=== PATIENT | male | born 1970 | race African-American/Black ===

== ENCOUNTER 2019-09-24 09:36 | Inpatient (IN) | payer OTHER ==
[2019-09-24 10:26] VITALS: BMI 20.3
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
[2019-09-24] MEDS ORDERED: cloNIDine HCL 0.1 MG TABLET PO PRN (11:48)
[2019-09-24] MEDS ORDERED: BISMUTH SUBSALICYLATE 524 MG/30 ML UD PO PRN (11:48)
[2019-09-24] MEDS ORDERED: MAGNESIUM CITRATE 300 ML BOTTLE PO PRN (11:48)
[2019-09-24] MEDS ORDERED: ACETAMINOPHEN 325 MG TABLET (FP) PO PRN ×2 (11:48)
[2019-09-24] MEDS ORDERED: hydrOXYzine PAMOATE 25 MG CAPSULE (FP) PO PRN (11:48)
[2019-09-24] MEDS ORDERED: MAG HYDROX/AL HYDROX/SIMETH 30 ML UNIT-DOSE CUP PO PRN (11:48)
[2019-09-24] MEDS ORDERED: MENTHOL/PHENOL 1 EACH UD MM PRN (11:48)
[2019-09-24] MEDS ORDERED: chlordiazePOXIDE HCL 25 MG CAPSULE PO PRN (11:48)
[2019-09-24] MEDS ORDERED: METHOCARBAMOL 500 MG TABLET PO PRN (11:48)
[2019-09-24] MEDS ORDERED: MAGNESIUM HYDROX 2400MG/30ML ORAL SUSPENSION 30 ML CUP PO PRN (11:48)
[2019-09-24] MEDS ORDERED: METHADONE HCL 10 MG TABLET (FOR DETOX USE ONLY) PO ONE (13:00)
[2019-09-24] MEDS: METHIMAZOLE 10 MG TABLET (FP) PO SCH ×2 (15:34→22:28)
[2019-09-24] MEDS: chlordiazePOXIDE HCL 25 MG CAPSULE PO SCH ×2 (18:39→22:30)
[2019-09-24] MEDS: THIAMINE HCL 100 MG TABLET (FP) PO SCH (22:28)
[2019-09-24] MEDS: MELATONIN 5 MG TABLETS PO PRN (22:29)
[2019-09-25] MEDS: chlordiazePOXIDE HCL 25 MG CAPSULE PO SCH ×4 (05:40→22:30)
[2019-09-25] MEDS: METHIMAZOLE 10 MG TABLET (FP) PO SCH ×3 (05:42→20:35)
[2019-09-25] MEDS ORDERED: METHADONE HCL 10 MG TABLET (FOR DETOX USE ONLY) ONE (09:12)
[2019-09-25] MEDS ORDERED: METHADONE HCL 5 MG TABLET (FOR DETOX USE ONLY) ONE (09:13)
[2019-09-25] MEDS ORDERED: METHADONE (DETOX) 20 MG, METHADONE (DETOX) 5 MG PO ONE (10:00)
[2019-09-25] MEDS ORDERED: LOPERAMIDE HCL 2 MG CAPSULE PO ONE (10:13)
[2019-09-25] MEDS ORDERED: cloNIDine HCL 0.1 MG TABLET PO PRN (10:20)
--- NOTE | 2019-09-25 10:20 | PN ---
[facility] CIWA - CIWA Score Nausea/Vomitin-Mild Nausea/No Vomiting Muscle Tremors: 3 Anxiety: 4-Mod. Anxious/Guarded Agitation: 2 Paroxysmal Sweats: 2 Orientation: 0-Oriented Tacttile Disturbances: 0-None Auditory Disturbances: 0-None Visual Disturbances: 0-None Headache: 1-Very Mild CIWA-Ar Total Score: 13 [facility] COWS - Scale Resting Pulse: 0= [place] 80 or Below Sweatin= Chills/Flushing Restless Observation: 0= Sits Still Pupil Size: 1= Pupils >than Normal Bone or Joint Aches: 1= Mild Discomfort Runny Nose/ Eye Tearin= Nasal Congestion GI Upset > 30mins: 2= Nausea/Diarrhea Tremor Observation of Outstretched Hands: 2= Slight Tremor Visible Yawning Observation: 1= 1-2x During Session Anxiety or Irritability: 1=Feels Anxious/Irritable Goose Flesh Skin: 3=Piloerection COWS Score: 13 [facility] Progress Note (SOAP) Subjective: 48 years old male admitted on 09/24/19 for alcohol and opiate withdrawal sx management treating with librium and methadone detox regimen received 14 days suboxone 8-2mg sl tid on 09/08/19 tolerated methadone well and prefers to continue methadone detox diarrhea x 1 after breakfast imodium 4 mg po x 1 discontinue citric and mom Objective: 09/25/19 10:21 Vital Signs Temperature 98.7 F 09/25/19 09:11 Pulse Rate 71 09/25/19 09:11 Respiratory Rate 16 09/25/19 09:11 Blood Pressure 146/91 09/25/19 09:11 O2 Sat by Pulse Oximetry (%) 09/25/19 10:21 lab pending bp elevation denies history of bp elevation begin clonidine 0.1mg po q6h prn Assessment: 09/25/19 10:22 alcohol and opiate withdrawal Plan: librium and methadone regimens
[2019-09-25] MEDS: PRENATAL VITAMINS W/ FOLIC ACID TABLET (FP) PO SCH (10:25)
[2019-09-25 10:39] LABS: HEMATOCRIT 37.1 % (35.4-49); HEMOGLOBIN 12.3 GM/dL (11.7-16.9); MCH 30.6 pg (25.7-33.7); MCHC 33.2 g/dl (32.0-35.9); MEAN CELL VOLUME 92.3 fl (80-96); MEAN PLT VOLUME 9.3 fl (7.5-11.1); PLATELET COUNT 293 K/MM3 (134-434); RBC 4.03 M/mm3 (4.00-5.60); RDW 13.5 % (11.9-15.9)
[2019-09-25 10:49] LABS: ALBUMIN 3.6 g/dl (3.4-5.0); BLOOD UREA NITROGEN 6.5 mg/dL (7-18); CALCIUM 9.4 mg/dL (8.5-10.1); CREATININE 0.8 mg/dL (0.55-1.3); POTASSIUM 4.3 mmol/L (3.5-5.1); TOT PROT 6.4 g/dl (6.4-8.2)
[2019-09-25] MEDS: IBUPROFEN 400 MG TABLET (FP) PO PRN (11:51)
[2019-09-25] MEDS: THIAMINE HCL 100 MG TABLET (FP) PO SCH (22:30)
[2019-09-25] MEDS: MELATONIN 5 MG TABLETS PO PRN (22:30)
[2019-09-26] MEDS: chlordiazePOXIDE HCL 25 MG CAPSULE PO SCH ×2 (05:30→10:25)
[2019-09-26] MEDS: METHIMAZOLE 10 MG TABLET (FP) PO SCH (05:30)
[2019-09-26 09:23] VITALS: BP 140/80; PULSE 77; TEMP 98
[2019-09-26] MEDS ORDERED: METHADONE HCL 10 MG TABLET (FOR DETOX USE ONLY) PO ONE (10:00)
[2019-09-26] MEDS: IBUPROFEN 400 MG TABLET (FP) PO PRN (10:25)
[2019-09-26] MEDS: PRENATAL VITAMINS W/ FOLIC ACID TABLET (FP) PO SCH (10:25)
--- NOTE | 2019-09-26 10:46 | PN ---
[facility] CIWA - CIWA Score Nausea/Vomitin-Mild Nausea/No Vomiting Muscle Tremors: 2 Anxiety: 3 Agitation: 1-Slight > Activity Paroxysmal Sweats: 2 Orientation: 1-Uncertain about Date (date of week) Tacttile Disturbances: 0-None Auditory Disturbances: 0-None Visual Disturbances: 0-None Headache: 1-Very Mild CIWA-Ar Total Score: 11 S Progress Note (SOAP) Subjective: 48 years old male admitted on 09/24/19 for alcohol and opiate withdrawal sx management treating with librium and methadone detox regimens discuss the benefits of medication assisted treatment program pickle sorter narcan from pharmacy Objective: 09/26/19 10:48 Vital Signs Temperature 98.0 F 09/26/19 09:22 Pulse Rate 77 09/26/19 09:22 Respiratory Rate 18 09/26/19 09:22 Blood Pressure 140/80 09/26/19 09:22 O2 Sat by Pulse Oximetry (%) Laboratory Last Values WBC 5.0 K/mm3 (4.0-10.0) 09/25/19 07:35 RBC 4.03 M/mm3 (4.00-5.60) 09/25/19 07:35 Hgb 12.3 GM/dL (11.7-16.9) 09/25/19 07:35 Hct 37.1 % (35.4-49) D 09/25/19 07:35 MCV 92.3 fl (80-96) 09/25/19 07:35 MCH 30.6 pg (25.7-33.7) 09/25/19 07:35 MCHC 33.2 g/dl (32.0-35.9) 09/25/19 07:35 RDW 13.5 % (11.9-15.9) 09/25/19 07:35 Plt Count 293 K/MM3 (134-434) D 09/25/19 07:35 MPV 9.3 fl (7.5-11.1) 09/25/19 07:35 Sodium 142 mmol/L (136-145) 09/25/19 07:35 Potassium 4.3 mmol/L (3.5-5.1) 09/25/19 07:35 Chloride 109 mmol/L (98-107) H 09/25/19 07:35 Carbon Dioxide 27 mmol/L (21-32) 09/25/19 07:35 Anion Gap 6 MMOL/L (8-16) L 09/25/19 07:35 BUN 6.5 mg/dL (7-18) L 09/25/19 07:35 Creatinine 0.8 mg/dL (0.55-1.3) 09/25/19 07:35 Est GFR (CKD-EPI)AfAm 121.57 09/25/19 07:35 Est GFR (CKD-EPI)NonAf 104.89 09/25/19 07:35 Random Glucose 94 mg/dL (74-106) 09/25/19 07:35 Calcium 9.4 mg/dL (8.5-10.1) 09/25/19 07:35 Total Bilirubin 1.0 mg/dL (0.2-1) 09/25/19 07:35 AST 17 U/L (15-37) 09/25/19 07:35 ALT 30 U/L (13-61) 09/25/19 07:35 Alkaline Phosphatase 82 U/L (45-117) 09/25/19 07:35 Total Protein 6.4 g/dl (6.4-8.2) 09/25/19 07:35 Albumin 3.6 g/dl (3.4-5.0) 09/25/19 07:35 RPR Titer Nonreactive (NONREACTIVE) 09/25/19 07:35 lab noted bp elevation continue clonidine 0.1 mgpo prn 09/26/19 10:53 Assessment: 09/26/19 10:53 alcohol and opiate withdrawal Plan: librium and methadone regimens
[2019-09-26 13:16] LABS: PH,URINE 6.5 (5.0-8.0); URINE APPEARANCE CLEAR; URINE BILIRUBIN NEGATIVE (NEGATIVE); URINE COLOR YELLOW; URINE GLUCOSE (UA) NEGATIVE (NEGATIVE); URINE KETONE NEGATIVE (NEGATIVE); URINE LEUK ESTERASE NEGATIVE (NEGATIVE); URINE NITRITE NEGATIVE (NEGATIVE); URINE PROTEIN NEGATIVE (NEGATIVE); URINE UROBILINOGEN 0.2 mg/dL (0.2-1.0)
--- NOTE | 2019-09-26 14:06 | DS ---
[facility] Detox Discharge Summary Admission Date: 09/24/19 Discharge Date: 09/26/19 - History Present History: Alcohol Dependence, Opioid Dependence Additional Comments: 48 years old male admitted on 09/24/19 for alcohol and opiate withdrawal sx management treated with librium and methadone detox regimen patient insists to leave the detox unit that he prefers returning back to his suboxone provider and continue behavior and psychosocial therapies patient is alert oriented x 3 ambulating with steady gait speech clearly and coherently Pertinent Past History: case discussed wit the nurse against medical advice is appropriated - Physical Exam Results Vital Signs: Vital Signs Temperature 98.0 F 09/26/19 09:22 Pulse Rate 77 09/26/19 09:22 Respiratory Rate 18 09/26/19 09:22 Blood Pressure 140/80 09/26/19 09:22 O2 Sat by Pulse Oximetry (%) Pertinent Admission Physical Exam Findings: alcohol and opiate withdrawal Laboratory Last Values WBC 5.0 K/mm3 (4.0-10.0) 09/25/19 07:35 RBC 4.03 M/mm3 (4.00-5.60) 09/25/19 07:35 Hgb 12.3 GM/dL (11.7-16.9) 09/25/19 07:35 Hct 37.1 % (35.4-49) D 09/25/19 07:35 MCV 92.3 fl (80-96) 09/25/19 07:35 MCH 30.6 pg (25.7-33.7) 09/25/19 07:35 MCHC 33.2 g/dl (32.0-35.9) 09/25/19 07:35 RDW 13.5 % (11.9-15.9) 09/25/19 07:35 Plt Count 293 K/MM3 (134-434) D 09/25/19 07:35 MPV 9.3 fl (7.5-11.1) 09/25/19 07:35 Sodium 142 mmol/L (136-145) 09/25/19 07:35 Potassium 4.3 mmol/L (3.5-5.1) 09/25/19 07:35 Chloride 109 mmol/L (98-107) H 09/25/19 07:35 Carbon Dioxide 27 mmol/L (21-32) 09/25/19 07:35 Anion Gap 6 MMOL/L (8-16) L 09/25/19 07:35 BUN 6.5 mg/dL (7-18) L 09/25/19 07:35 Creatinine 0.8 mg/dL (0.55-1.3) 09/25/19 07:35 Est GFR (CKD-EPI)AfAm 121.57 09/25/19 07:35 Est GFR (CKD-EPI)NonAf 104.89 09/25/19 07:35 Random Glucose 94 mg/dL (74-106) 09/25/19 07:35 Calcium 9.4 mg/dL (8.5-10.1) 09/25/19 07:35 Total Bilirubin 1.0 mg/dL (0.2-1) 09/25/19 07:35 AST 17 U/L (15-37) 09/25/19 07:35 ALT 30 U/L (13-61) 09/25/19 07:35 Alkaline Phosphatase 82 U/L (45-117) 09/25/19 07:35 Total Protein 6.4 g/dl (6.4-8.2) 09/25/19 07:35 Albumin 3.6 g/dl (3.4-5.0) 09/25/19 07:35 Urine Color Yellow 09/26/19 10:25 Urine Appearance Clear 09/26/19 10:25 Urine pH 6.5 (5.0-8.0) 09/26/19 10:25 Ur Specific [place] 1.007 (1.010-1.035) L 09/26/19 10:25 Urine Protein Negative (NEGATIVE) 09/26/19 10:25 Urine Glucose (UA) Negative (NEGATIVE) 09/26/19 10:25 Urine Ketones Negative (NEGATIVE) 09/26/19 10:25 Urine Blood Negative (NEGATIVE) 09/26/19 10:25 Urine Nitrite Negative (NEGATIVE) 09/26/19 10:25 Urine Bilirubin Negative (NEGATIVE) 09/26/19 10:25 Urine Urobilinogen 0.2 mg/dL (0.2-1.0) 09/26/19 10:25 Ur Leukocyte Esterase Negative (NEGATIVE) 09/26/19 10:25 RPR Titer Nonreactive (NONREACTIVE) 09/25/19 07:35 lab noted patient agrees to repeat tsh - Treatment Hospital Course: Detox Protocol Followed, Discharged Condition Good Patient has Accepted a Rehab Referral to: suboxone provider / [facility] - Medication Discharge Medications: Ambulatory Orders Methimazole [Tapazole -] 10 mg PO Q8H #90 tablet 10/04/16 Naloxone HCl [Narcan] 4 mg NS ASDIR PRN #1 spray 09/25/19 - Diagnosis (1) Alcohol dependence with uncomplicated withdrawal Status: Acute (2) Nicotine dependence Status: Acute Qualifiers: Nicotine product type: cigarettes Substance use status: in withdrawal Qualified Code(s): F17.213 - Nicotine dependence, cigarettes, with withdrawal (3) Opioid dependence with withdrawal Status: Acute - AMA Did Patient Leave Against Medical Advice: Yes
[2019-09-27] MEDS ORDERED: chlordiazePOXIDE HCL 10 MG CAPSULE PO PRN
[2019-09-27] MEDS ORDERED: chlordiazePOXIDE HCL 10 MG CAPSULE PO SCH (05:00)
[2019-09-27] MEDS ORDERED: METHADONE (DETOX) 10 MG, METHADONE (DETOX) 5 MG PO ONE (10:00)
[2019-09-28] MEDS ORDERED: chlordiazePOXIDE HCL 10 MG CAPSULE PO SCH (05:00)
[2019-09-28] MEDS ORDERED: METHADONE HCL 10 MG TABLET (FOR DETOX USE ONLY) PO ONE (10:00)
[2019-09-29] MEDS ORDERED: chlordiazePOXIDE HCL 10 MG CAPSULE PO ONE (05:00)
[2019-09-29] MEDS ORDERED: METHADONE HCL 5 MG TABLET (FOR DETOX USE ONLY) PO ONE (06:00)
== END 2019-09-26 12:46 | disposition left against medical advice (07) | DRG 770 ==
LOC: YASAS 09:36 → Y3N 11:44
PROVIDERS: ADMIT Allergy & Immunology; ATTEND Allergy & Immunology
PROC: HZ2ZZZZ Detoxification Services for Substance Abuse Treatment (ICD-10-PCS; principal; 2019-09-24)
DX: F11.23 Opioid dependence with withdrawal (principal); F10.230 Alcohol dependence with withdrawal, uncomplicated; F14.20 Cocaine dependence, uncomplicated; F12.20 Cannabis dependence, uncomplicated; F17.213 Nicotine dependence, cigarettes, with withdrawal; K21.9 Gastro-esophageal reflux disease without esophagitis; R63.4 Abnormal weight loss; E05.90 Thyrotoxicosis, unspecified without thyrotoxic crisis or storm; Z87.438 Personal history of other diseases of male genital organs; Z91.018 Allergy to other foods; Z88.8 Allergy status to other drugs, medicaments and biological substances; Z56.0 Unemployment, unspecified
CPT/HCPCS: 36415; 80053; 81003; 85027; 86593; J0735

== ENCOUNTER 2024-10-27 10:38 | Inpatient (IN) | payer OTHER ==
[2024-10-27 11:11] VITALS: BMI 19.5
[2024-10-27] MEDS ORDERED: chlordiazePOXIDE HCL 25 MG CAPSULE PO PRN (11:14)
[2024-10-27] MEDS ORDERED: POLYETHYLENE GLYCOL (HEALTHYLAX) 3350 17 GM PACKET PO PRN (11:14)
[2024-10-27] MEDS ORDERED: BISMUTH SUBSALICYLATE 262 MG/15 ML BTL PO PRN (11:14)
[2024-10-27] MEDS ORDERED: MAG HYDROX/AL HYDROX/SIMETH 30 ML UNIT-DOSE CUP PO PRN (11:14)
[2024-10-27] MEDS ORDERED: DICYCLOMINE HCL 10 MG CAPSULE PO PRN (11:14)
[2024-10-27] MEDS ORDERED: guaiFENesin 600 MG TABLET.ER (FP) PO PRN (11:14)
[2024-10-27] MEDS ORDERED: NALOXONE (NARCAN) HCL 4 MG/0.1 ML SPRAY NS PRN (11:14)
[2024-10-27] MEDS ORDERED: IBUPROFEN 600 MG TABLET (FP) PO PRN (11:14)
[2024-10-27] MEDS ORDERED: ONDANSETRON *ODT* 4 MG TABLET SL PRN (11:14)
[2024-10-27] MEDS ORDERED: BENZOCAINE/MENTHOL (CHLORASEPTIC ) LOZENGE MM PRN (11:14)
[2024-10-27] MEDS ORDERED: hydrOXYzine PAMOATE 25 MG CAPSULE (FP) PO PRN (11:14)
[2024-10-27] MEDS ORDERED: MAGNESIUM HYDROX 2400MG/30ML ORAL SUSPENSION 30 ML CUP PO PRN (11:14)
[2024-10-27] MEDS ORDERED: LOPERAMIDE HCL 2 MG CAPSULE PO PRN (11:14)
[2024-10-27] MEDS ORDERED: METHOCARBAMOL 500 MG TABLET PO PRN (11:14)
[2024-10-27] MEDS ORDERED: BENZONATATE 200 MG CAPSULE PO PRN (11:14)
[2024-10-27] MEDS ORDERED: ACETAMINOPHEN 325 MG TABLET (FP) PO PRN (11:14)
[2024-10-27] MEDS ORDERED: IBUPROFEN 400 MG TABLET (FP) PO PRN (11:14)
[2024-10-27] MEDS: NICOTINE 21 MG/24 HOURS TOPICAL PATCH TD SCH (12:19)
[2024-10-27] MEDS ORDERED: methaDONE HCL 10 MG TABLET (FOR DETOX USE ONLY) ONE (12:22)
[2024-10-27] MEDS ORDERED: PRENATAL VITAMINS W/ FOLIC ACID TABLET (FP) PO ONE (12:22)
[2024-10-27] MEDS: methaDONE HCL 10 MG TABLET PO ONE (12:25)
[2024-10-27] MEDS: PRENATAL VITAMINS W/ FOLIC ACID TABLET (FP) PO SCH (12:26)
[2024-10-27] MEDS ORDERED: methaDONE HCL 10 MG TABLET PO PRN (13:14)
[2024-10-27] MEDS: cloNIDine HCL 0.1 MG TABLET PO SCH (13:33)
[2024-10-27] MEDS ORDERED: cloNIDine HCL 0.1 MG TABLET PO PRN (15:24)
[2024-10-27] MEDS: chlordiazePOXIDE HCL 25 MG CAPSULE PO SCH (17:27)
[2024-10-27] MEDS: METHIMAZOLE 10 MG TABLET PO SCH (22:41)
[2024-10-27] MEDS: THIAMINE 100 MG TABLET PO SCH (22:41)
[2024-10-27] MEDS: MELATONIN 5 MG TABLETS PO SCH (22:41)
[2024-10-28] MEDS ORDERED: methaDONE 40 MG, methaDONE 10 MG PO ONE (10:00)
[2024-10-28] MEDS: VITAMINS A AND D TOPICAL OINTMENT TP SCH (11:26)
[2024-10-28 12:41] LABS: HEMATOCRIT 39.6 % (35.4-49); HEMOGLOBIN 13.2 GM/dL (11.7-16.9); MCH 31.8 pg (25.7-33.7); MCHC 33.3 g/dl (32.0-35.9); MEAN CELL VOLUME 95.5 fl (80-96); MEAN PLT VOLUME 10.1 fl (7.5-11.1); PLATELET COUNT 194 10^3/uL (134-434); RBC 4.15 M/mm3 (4.00-5.60); RDW 13.3 % (11.9-15.9); WHITE BLOOD COUNT 4.3 K/mm3 (4.0-10.0)
[2024-10-28 12:47] LABS: POTASSIUM 5.4 mmol/L (3.5-5.1)
[2024-10-28 12:50] LABS: CALCIUM 9.1 mg/dL (8.5-10.1)
[2024-10-28 12:51] LABS: ALBUMIN 3.6 g/dl (3.4-5.0); BLOOD UREA NITROGEN 10.5 mg/dL (7-18)
[2024-10-28 12:53] LABS: CREATININE 0.9 mg/dL (0.55-1.3)
[2024-10-28 12:56] LABS: BILIRUBIN,TOTAL 0.8 mg/dL (0.2-1); TOT PROT 6.8 g/dl (6.4-8.2)
[2024-10-28] MEDS: CLOTRIMAZOLE 1% CREAM TP SCH (22:58)
[2024-10-29] MEDS ORDERED: cloNIDine HCL 0.1 MG TABLET PO PRN
[2024-10-29] MEDS: chlordiazePOXIDE HCL 25 MG CAPSULE PO SCH (05:55)
[2024-10-29] MEDS ORDERED: methaDONE 40 MG, methaDONE 20 MG PO ONE (10:00)
[2024-10-29] MEDS: methaDONE HCL 10 MG TABLET (FOR DETOX USE ONLY) PO ONE (10:11)
[2024-10-29] MEDS: SODIUM POLYSTYRENE SULFONATE 15 GM/60 ML BOTTLE PO ONE (13:30)
[2024-10-30] MEDS ORDERED: chlordiazePOXIDE HCL 10 MG CAPSULE PO PRN
[2024-10-30] MEDS: chlordiazePOXIDE HCL 10 MG CAPSULE PO SCH (05:50)
[2024-10-30] MEDS ORDERED: methaDONE 40 MG, methaDONE 30 MG PO ONE (10:00)
[2024-10-31] MEDS: chlordiazePOXIDE HCL 10 MG CAPSULE PO SCH (05:34)
[2024-10-31] MEDS: methaDONE HCL 10 MG TABLET (FOR DETOX USE ONLY) PO ONE (09:48)
[2024-10-31] MEDS ORDERED: methaDONE HCL 40 MG DISPERSABLE TABLET PO ONE (10:00)
[2024-10-31] MEDS: chlordiazePOXIDE HCL 10 MG CAPSULE PO ONE (18:17)
[2024-11-01] MEDS: chlordiazePOXIDE HCL 10 MG CAPSULE PO ONE (05:59)
[2024-11-01 07:00] VITALS: RESP 16
[2024-11-01 09:20] VITALS: BP 115/63; PULSE 55; TEMP 97.5
[2024-11-01] MEDS ORDERED: methaDONE 80 MG, methaDONE 10 MG PO ONE (10:00)
== END 2024-11-01 10:10 | disposition home or self-care (01) | DRG 773 ==
LOC: YASAS 10:38 → Y6N 12:22
PROVIDERS: ADMIT Allergy & Immunology; ATTEND Allergy & Immunology
PROC: HZ2ZZZZ Detoxification Services for Substance Abuse Treatment (ICD-10-PCS; principal; 2024-10-27)
DX: F11.23 Opioid dependence with withdrawal (principal); F10.230 Alcohol dependence with withdrawal, uncomplicated; F14.20 Cocaine dependence, uncomplicated; F12.20 Cannabis dependence, uncomplicated; F17.210 Nicotine dependence, cigarettes, uncomplicated; E87.5 Hyperkalemia; E05.90 Thyrotoxicosis, unspecified without thyrotoxic crisis or storm; R63.6 Underweight; Z68.1 Body mass index [BMI] 19.9 or less, adult; Z59.00 Homelessness unspecified
CPT/HCPCS: 36415; 80053; 80305; 80307; 85027; 86780; 93005; 93010

== ENCOUNTER 2025-06-21 16:10 | Inpatient (IN) | payer OTHER ==
[2025-06-21 16:52] VITALS: BMI 20.7
[2025-06-21] MEDS ORDERED: guaiFENesin 600 MG TABLET.ER (FP) PO PRN (17:02)
[2025-06-21] MEDS ORDERED: NALOXONE (NARCAN) HCL 4 MG/0.1 ML SPRAY NS PRN (17:02)
[2025-06-21] MEDS ORDERED: ONDANSETRON *ODT* 4 MG TABLET SL PRN (17:02)
[2025-06-21] MEDS ORDERED: NICOTINE POLACRILEX 2 MG LOZENGE BC PRN (17:02)
[2025-06-21] MEDS ORDERED: BISMUTH SUBSALICYLATE 524 MG/30 ML PO PRN (17:02)
[2025-06-21] MEDS ORDERED: IBUPROFEN 400 MG TABLET (FP) PO PRN (17:02)
[2025-06-21] MEDS ORDERED: NICOTINE POLACRILEX 2 MG GUM BUC PRN (17:02)
[2025-06-21] MEDS ORDERED: DICYCLOMINE HCL 10 MG CAPSULE PO PRN (17:02)
[2025-06-21] MEDS ORDERED: MAGNESIUM HYDROX 2400MG/30ML ORAL SUSPENSION 30 ML CUP PO PRN (17:02)
[2025-06-21] MEDS ORDERED: MAG HYDROX/AL HYDROX/SIMETH 30 ML UNIT-DOSE CUP PO PRN (17:02)
[2025-06-21] MEDS ORDERED: P-EPHED 60MG/TRIPROLIDI 2.5MG TABLET PO PRN (17:02)
[2025-06-21] MEDS ORDERED: BENZONATATE 200 MG CAPSULE PO PRN (17:02)
[2025-06-21] MEDS ORDERED: ACETAMINOPHEN 325 MG TABLET (FP) PO PRN (17:02)
[2025-06-21] MEDS ORDERED: LOPERAMIDE HCL 2 MG CAPSULE PO PRN (17:02)
[2025-06-21] MEDS ORDERED: POLYETHYLENE GLYCOL (HEALTHYLAX) 3350 17 GM PACKET PO PRN (17:02)
[2025-06-21] MEDS ORDERED: BENZOCAINE/MENTHOL (CHLORASEPTIC ) LOZENGE MM PRN (17:02)
[2025-06-21] MEDS: METHOCARBAMOL 500 MG TABLET PO PRN (18:51)
[2025-06-21] MEDS: METHIMAZOLE 10 MG TABLET PO SCH (22:44)
[2025-06-21] MEDS: THIAMINE 100 MG TABLET PO SCH (22:45)
[2025-06-21] MEDS: hydrOXYzine PAMOATE 25 MG CAPSULE (FP) PO PRN (22:45)
[2025-06-21] MEDS: MELATONIN 5 MG TABLETS PO SCH (22:45)
[2025-06-22] MEDS: PRENATAL VITAMINS W/ FOLIC ACID TABLET (FP) PO SCH (10:05)
[2025-06-22 10:07] LABS: MCHC 32.8 g/dl (32.3-36.5); MEAN CELL VOLUME 95.3 fl (79.0-92.2); MEAN PLT VOLUME 11.0 fl (9.4-12.4); RDW 12.3 % (12.2-16.1)
[2025-06-22 10:12] LABS: GLUCOSE,RANDOM 79 mg/dL (74-106); TOT PROT 6.2 g/dl (6.4-8.2)
[2025-06-22 10:13] LABS: CO2 26 mmol/L (21-32)
[2025-06-22 10:15] LABS: ALK PHOS 50 U/L (40-150)
[2025-06-22 10:18] LABS: CREATININE 0.92 mg/dL (0.55-1.3); SGOT/AST 25 U/L (5-34); SGPT/ALT 15 U/L (0-55)
[2025-06-23] MEDS: IBUPROFEN 600 MG TABLET (FP) PO PRN (10:36)
[2025-06-28 06:11] VITALS: RESP 16
[2025-06-28 09:41] VITALS: BP 114/60; PULSE 43; TEMP 97.1
== END 2025-06-28 10:52 | disposition home or self-care (01) | DRG 773 ==
LOC: YASAS 16:10 → Y3N 17:48
PROVIDERS: ADMIT Neuromusculoskeletal Medicine & OMM; ATTEND Counselor Addiction (Substance Use Disorder)
PROC: HZ2ZZZZ Detoxification Services for Substance Abuse Treatment (ICD-10-PCS; principal; 2025-06-21)
DX: F11.23 Opioid dependence with withdrawal (principal); F10.230 Alcohol dependence with withdrawal, uncomplicated; F14.20 Cocaine dependence, uncomplicated; F12.20 Cannabis dependence, uncomplicated; F17.210 Nicotine dependence, cigarettes, uncomplicated; E05.90 Thyrotoxicosis, unspecified without thyrotoxic crisis or storm; K21.9 Gastro-esophageal reflux disease without esophagitis; Z86.19 Personal history of other infectious and parasitic diseases
CPT/HCPCS: 36415; 80053; 80307; 85027; 86780; 93005; 93010